=== PATIENT | female | born 1965 | race Caucasian/White ===

== ENCOUNTER 2021-12-28 01:28 | Emergency (ER) | payer OTHER ==
[~2021-12-28] VITALS: Ht 144.8 cm; Wt 84.4 kg
[2021-12-28 01:35] VITALS: BP 165/83
--- NOTE | 2021-12-28 01:47 | NUR ---
Patient ambulated to bed 9.
--- NOTE | 2021-12-28 02:01 | NUR ---
Patient walked out off ER.
--- NOTE | 2021-12-28 02:02 | NUR ---
PATIENT LEFT WITHOUT BEING SEEN BY DR. DAMON. NO FURTHER CARE PROVIDED FOR PATIENT.
== END 2021-12-28 02:02 | disposition left against medical advice (07) ==
LOC: MED 01:28
DX: K08.89 Other specified disorders of teeth and supporting structures (principal); Z53.21 Procedure and treatment not carried out due to patient leaving prior to being seen by health care provider
CPT/HCPCS: 82948

== ENCOUNTER 2023-06-27 21:42 | Emergency (ER) | payer OTHER ==
[~2023-06-27] VITALS: Ht 157.5 cm; Wt 87.1 kg
[2023-06-27 22:00] VITALS: BP 162/100; PULSE 87; RESP 20; TEMP 97.4; O2SAT 96
[2023-06-27 23:29] VITALS: BP 186/80; PULSE 87; RESP 14; O2SAT 94
[2023-06-28] MEDS ORDERED: ACET-2619 PO (00:21)
[2023-06-28] MEDS ORDERED: IBUP-1842 PO (00:21)
[2023-06-28] MEDS ORDERED: ROB PO (00:21)
[2023-06-28 00:47] VITALS: O2SAT 94
== END 2023-06-28 01:10 | disposition home or self-care (01) ==
LOC: MED 21:42
DX: B34.9 Viral infection, unspecified (principal); Z79.899 Other long term (current) drug therapy
CPT/HCPCS: 71045; 99283